=== PATIENT | male | born 1945 | race Caucasian/White ===

== ENCOUNTER → 2017-02-02 | Outpatient (CLI) | payer MEDICARE ==
[~2017-02-02] MED LIST: AMOXIL-DPS500 MG PO; ASPIRIN EC81 MG PO; CHLORASEPTIC20 ML PO; DELTASONE DPS10 MG PO; FIBER THERAPY500 MG PO; FLOMAX DPS0.4 MG PO; FLONASE 0.05% D16 GM NS; MUCINEX600 MG PO; PROTONIX40 MG PO; PROVENTIL HFA6.7 GM IH; VITAMIN D-32000 UNI1 PO; ZITHROMAX500 MG PO; ZOCOR DPS10 MG PO
== END | disposition home or self-care (01) ==
LOC: RAD.S 01-26 15:44 → RESC 12:59
DX: J84.10 Pulmonary fibrosis, unspecified (principal); J47.9 Bronchiectasis, uncomplicated; R94.2 Abnormal results of pulmonary function studies